=== PATIENT | female | born 1990 | race Caucasian/White ===

== ENCOUNTER 2016-11-24 14:46 | Emergency (ER) | payer OTHER ==
[~2016-11-24 14:46] MED LIST: BACTRIM D.S. TAB1 EA PO
== END 2016-11-24 16:31 | disposition home or self-care (01) ==
LOC: ER1 14:46
DX: J11.1 Influenza due to unidentified influenza virus with other respiratory manifestations (principal); Z90.49 Acquired absence of other specified parts of digestive tract
CPT/HCPCS: 87081; 87880; 99283

== ENCOUNTER → 2017-01-21 | Outpatient (CLI) | payer OTHER | LOC: EMI 08:52 | DX: G95.9 Disease of spinal cord, unspecified (principal); M62.89 Other specified disorders of muscle | CPT/HCPCS: 70553; A9577; J7050 ==

== ENCOUNTER 2020-10-23 15:58 | Emergency (ER) | payer OTHER ==
[~2020-10-23 15:58] MED LIST changes: +BENTYL 10MG CAP10 MG PO; +BENTYL 20MG TAB20 MG PO; +CIPRO500 MG PO; +FLAGYL500 MG PO; +MIRALAX 119 GR119 GM GT; +NAPROSYN500 MG PO; +OMNICEF 300 MG300 MG PO; +ONDANSETRON ODT4 MG PO; +PYRIDIUM200 MG PO; +ZOFRAN ODT 4 MG4 MG SL
[2020-10-23 17:06] LABS: RED BLOOD COUNT 4.56 M/UL (4.00-5.10); WHITE BLOOD COUNT 6.2 K/UL (4.5-11.0)
[2020-10-23 17:27] LABS: BUN/CREATININE RATIO 12 (0-10)
[2020-10-23] MEDS ORDERED: OMNICEF 300 MG300 MG PO (19:09)
== END 2020-10-23 19:21 | disposition home or self-care (01) ==
LOC: ER1 15:58
PROVIDERS: Emergency Medicine
DX: R10.9 Unspecified abdominal pain (principal); Z90.49 Acquired absence of other specified parts of digestive tract; Z90.89 Acquired absence of other organs
CPT/HCPCS: 80053; 81001; 83690; 84703; 85025; 85379; 96365; 96375; 99284; J0696; J2270; J2405; J7030; Q9967

== ENCOUNTER 2021-01-21 20:23 | Emergency (ER) | payer OTHER ==
[2021-01-21 20:56] LABS: HEMOGLOBIN 13.6 gm/dl (12.3-15.3); RED BLOOD COUNT 4.68 M/UL (4.00-5.10); WHITE BLOOD COUNT 8.5 K/UL (4.5-11.0)
[2021-01-21 21:23] LABS: BUN/CREATININE RATIO 10 (0-10)
== END 2021-01-21 22:35 | disposition home or self-care (01) ==
LOC: ER1 20:23
PROVIDERS: Physician Assistant
DX: R00.2 Palpitations (principal); F17.290 Nicotine dependence, other tobacco product, uncomplicated; Z90.49 Acquired absence of other specified parts of digestive tract
CPT/HCPCS: 71045; 80053; 82550; 82553; 83874; 84439; 84443; 84484; 84703; 85025; 85379; 93005; 99285

== ENCOUNTER 2021-03-15 13:44 | Emergency (ER) | payer OTHER ==
[2021-03-15 14:44] LABS: HEMOGLOBIN 13.8 gm/dl (12.3-15.3); RED BLOOD COUNT 4.99 M/UL (4.00-5.10); WHITE BLOOD COUNT 6.5 K/UL (4.5-11.0)
[2021-03-15 15:02] LABS: BUN/CREATININE RATIO 11 (0-10)
[2021-03-15] MEDS ORDERED: PEPCID20 MG PO (15:20)
[2021-03-15] MEDS ORDERED: OMNICEF 300 MG300 MG PO (15:20)
== END 2021-03-15 17:00 | disposition home or self-care (01) ==
LOC: ER1 13:44
PROVIDERS: Physician Assistant
DX: N39.0 Urinary tract infection, site not specified (principal); Z20.822 Contact with and (suspected) exposure to COVID-19; Z90.49 Acquired absence of other specified parts of digestive tract
CPT/HCPCS: 71045; 80053; 81001; 83690; 84703; 85025; 87086; 99284; U0002

== ENCOUNTER 2021-04-28 05:34 | Emergency (ER) | payer OTHER ==
[~2021-04-28 05:34] MED LIST changes: +PEPCID20 MG PO
== END 2021-04-28 07:15 | disposition home or self-care (01) ==
LOC: ER1 05:34
DX: R07.89 Other chest pain (principal); F17.290 Nicotine dependence, other tobacco product, uncomplicated; Z90.49 Acquired absence of other specified parts of digestive tract; Z90.89 Acquired absence of other organs
CPT/HCPCS: 71045; 99284

== ENCOUNTER 2021-09-25 03:16 | Emergency (ER) | payer OTHER | END 2021-09-25 04:04 | disposition home or self-care (01) | LOC: ER1 03:16 | DX: G62.9 Polyneuropathy, unspecified (principal) | CPT/HCPCS: 99283 ==

== ENCOUNTER → 2021-09-25 | Outpatient (CLI) | payer OTHER ==
[2021-09-25 16:08] LABS: HEMOGLOBIN 13.4 gm/dl (12.3-15.3); RED BLOOD COUNT 4.72 M/UL (4.00-5.10); WHITE BLOOD COUNT 7.1 K/UL (4.5-11.0)
[2021-09-25 16:26] LABS: BUN/CREATININE RATIO 8 (0-10)
[2021-09-26 05:09] LABS: THYROXINE (T4) 10.5 ug/dL (4.5-12.0); VITAMIN D, 25-HYDROXY 31.7 ng/mL (30.0-100.0)
== END ==
LOC: US 15:12
PROVIDERS: Nurse Practitioner Family
DX: M79.605 Pain in left leg (principal); U07.1 COVID-19; R20.0 Anesthesia of skin; I10 Essential (primary) hypertension; E78.2 Mixed hyperlipidemia; E55.9 Vitamin D deficiency, unspecified; E53.8 Deficiency of other specified B group vitamins
CPT/HCPCS: 36415; 80053; 80061; 82607; 84436; 84443; 84480; 85025; 93971